=== PATIENT | female | born 1985 | race Caucasian/White ===

== ENCOUNTER 2017-07-26 01:01 | Emergency (ER) | payer OTHER, MEDICAID ==
[2017-07-26] MEDS: IBUPROFEN 600 MG TAB PO (04:21)
[2017-07-26] MEDS: ACETAMINOPHEN 500 MG TAB PO (04:21)
== END 2017-07-26 04:58 | disposition home or self-care (01) ==
LOC: FTE 01:01
DX: R05 Cough (principal)
CPT/HCPCS: 99283; Z7502